=== PATIENT | female | born 1960 | race African-American/Black ===

== ENCOUNTER 2017-01-12 18:06 | Emergency (ER) | payer SELFPAY ==
[~2017-01-12] VITALS: Ht 160 cm; Wt 114.0 kg
[2017-01-12] MEDS ORDERED: KETOROLAC 30MG/ML VIAL IM ONE (19:45)
[2017-01-12 19:55] VITALS: BP 137/89
== END 2017-01-12 21:30 | disposition home or self-care (01) ==
LOC: ER 21:13
DX: M25.561 Pain in right knee (principal); I10 Essential (primary) hypertension; Z88.6 Allergy status to analgesic agent
CPT/HCPCS: 96372; 99283; J1885; Z7610

== ENCOUNTER 2018-06-21 21:35 | Emergency (ER) | payer MEDICAID ==
[~2018-06-21] VITALS: Ht 160 cm; Wt 86.0 kg
[2018-06-22 00:02] LABS: CLARITY URINE CLOUDY (CLEAR); COLOR URINE YELLOW (YELLOW); KETONES URINE TRACE (NEGATIVE); LEUKOCYTE ESTERASE URINE NEGATIVE (NEGATIVE); NITRITE URINE NEGATIVE (NEGATIVE); OCCULT BLOOD URINE NEGATIVE (NEGATIVE); PROTEIN URINE NEGATIVE (NEGATIVE); SPECIFIC GRAVITY URINE 1.038 (1.005-1.030); UROBILINOGEN URINE 0.2 E.U./dL (0.2-1.0)
[2018-06-22] MEDS ORDERED: FAMOTIDINE 20MG/2ML VIAL IV STA (00:16)
[2018-06-22] MEDS ORDERED: SODIUM CHLORIDE 0.9% 1,000 ML IV ONE (00:16)
[2018-06-22] MEDS ORDERED: ONDANSETRON HCL 4MG/2ML INJ IV STA (00:16)
[2018-06-22 00:42] LABS: BASOPHILS % 0.5 % (0.0-2.0); HEMATOCRIT. 31.9 % (36.0-48.0); HEMOGLOBIN. 10.4 g/dL (12.0-16.0); LYMPHOCYTES % 23.5 % (20.0-50.0); MEAN CORPUSCULAR HEMOGLOBIN 26.8 pg (28.0-32.0); MONOCYTES % 8.6 % (2.0-8.0); NEUTROPHILS % 65.4 % (40.0-76.0); PLATELET 372 x1000/uL (130-400); RED BLOOD CELL COUNT 3.89 mill/uL (4.2-5.4); RED CELL DISTRIBUTION WIDTH 14.9 % (11.6-14.6)
[2018-06-22 00:48] LABS: CHLORIDE 103 mEq/L (98-107)
[2018-06-22 00:51] LABS: PROTHROMBIN TIME 10.4 sec (9.6-11.0)
[2018-06-22] MEDS ORDERED: TRAMADOL 50MG TABLET PO ONE (02:30)
[2018-06-22] MEDS ORDERED: IOHEXOL-300 100 ML BOTTLE ONE (03:26)
[2018-06-22] MEDS ORDERED: METRONIDAZOLE 500MG TABLET PO NR (03:45)
[2018-06-22] MEDS ORDERED: LEVOFLOXACIN 500MG PREMIX 100 ML IV NR (03:45)
[2018-06-22] MEDS ORDERED: LEVOFLOXACIN 500MG TABLET PO ONE (04:00)
[2018-06-22 04:08] VITALS: BP 121/69
== END 2018-06-22 04:10 | disposition home or self-care (01) ==
LOC: ER 21:35
DX: K57.92 Diverticulitis of intestine, part unspecified, without perforation or abscess without bleeding (principal); I10 Essential (primary) hypertension; Z88.5 Allergy status to narcotic agent; Z88.6 Allergy status to analgesic agent
CPT/HCPCS: 36415; 74177; 80053; 81003; 83690; 85025; 85610; 96374; 96375; 99284; J2405; J3490; J7030; Q9967; Z7610

== ENCOUNTER 2018-06-30 15:30 | Inpatient (IN) | payer MEDICAID ==
[~2018-06-30] VITALS: Ht 160 cm; Wt 79.4 kg
[2018-06-30] MEDS ORDERED: ONDANSETRON HCL 4MG/2ML INJ IV STA (18:59)
[2018-06-30] MEDS ORDERED: KETOROLAC 30MG/ML VIAL IV STA (18:59)
[2018-06-30] MEDS ORDERED: SODIUM CHLORIDE 0.9% 1,000 ML IV ONE (18:59)
[2018-06-30] MEDS ORDERED: CEFTRIAXONE 1 G PREMIX 50 ML IV ONE (19:00)
[2018-06-30] MEDS ORDERED: METRONIDAZOLE 500 MG PREMIX 100 ML IV ONE (19:00)
[2018-06-30 19:36] LABS: BASOPHILS % 0.6 % (0.0-2.0); HEMATOCRIT. 34.2 % (36.0-48.0); LYMPHOCYTES % 19.2 % (20.0-50.0); MEAN CORPUSCULAR HEMOGLOBIN 26.7 pg (28.0-32.0); MEAN CORPUSCULAR VOLUME 82.8 fL (81.0-99.0); MEAN PLATELET VOLUME 7.1 fl (7.4-10.4); MONOCYTES % 7.7 % (2.0-8.0); NEUTROPHILS % 71.5 % (40.0-76.0); PLATELET 445 x1000/uL (130-400); RED BLOOD CELL COUNT 4.13 mill/uL (4.2-5.4); RED CELL DISTRIBUTION WIDTH 15.6 % (11.6-14.6)
[2018-06-30 19:40] LABS: CHLORIDE 103 mEq/L (98-107)
[2018-06-30 21:15] LABS: CLARITY URINE CLOUDY (CLEAR); COLOR URINE YELLOW (YELLOW); KETONES URINE 1+ (NEGATIVE); LEUKOCYTE ESTERASE URINE 1+ (NEGATIVE); NITRITE URINE NEGATIVE (NEGATIVE); OCCULT BLOOD URINE NEGATIVE (NEGATIVE); PROTEIN URINE TRACE (NEGATIVE); SPECIFIC GRAVITY URINE 1.028 (1.005-1.030); UROBILINOGEN URINE 0.2 E.U./dL (0.2-1.0)
[2018-06-30] MEDS ORDERED: IOHEXOL-300 100 ML BOTTLE ONE (21:46)
[2018-07-01] VITALS (7 sets, daily range): BP systolic 112–138; BP diastolic 63–82
[2018-07-01] MEDS ORDERED: ATOR40TA70 MT (02:28)
[2018-07-01] MEDS ORDERED: LISI-604 MT (02:28)
[2018-07-01] MEDS ORDERED: HYDR25TA MT (02:28)
[2018-07-01] MEDS ORDERED: FERR220S12 MT (02:28)
[2018-07-01] MEDS ORDERED: CIPR-168 MT (02:28)
[2018-07-01] MEDS ORDERED: METR-218 MT (02:28)
[2018-07-01] MEDS ORDERED: MORPHINE SULFATE 2 MG/ML CPJ (NOT FOR IM USE) IV PRN (04:30)
[2018-07-01] MEDS ORDERED: ONDANSETRON HCL 4MG/2ML INJ IV PRN (04:30)
[2018-07-01] MEDS ORDERED: METRONIDAZOLE 500 MG PREMIX 100 ML IV SCH ×2 (04:45→08:00)
[2018-07-01] MEDS ORDERED: KETOROLAC 15MG/ML VIAL IV PRN (07:30)
[2018-07-01] MEDS: DEXT 5%/0.45% NACL KCL 20MEQ/L 1,000 ML IV SCH ×2 (08:47→16:49)
[2018-07-01] MEDS: LEVOFLOXACIN 500MG PREMIX 100 ML IV SCH (08:47)
[2018-07-01] MEDS: METRONIDAZOLE 500 MG PREMIX 100 ML IV SCH ×3 (08:47→23:02)
[2018-07-01] MEDS ORDERED: LEVOFLOXACIN 500MG PREMIX 100 ML IV SCH (09:00)
[2018-07-02] VITALS: BP 133/69
[2018-07-02] MEDS: DEXT 5%/0.45% NACL KCL 20MEQ/L 1,000 ML IV SCH ×2 (02:46→09:00)
[2018-07-02 04:00] VITALS: BP 127/77
[2018-07-02 07:21] LABS: BASOPHILS % 0.5 % (0.0-2.0); HEMATOCRIT. 28.2 % (36.0-48.0); HEMOGLOBIN. 9.2 g/dL (12.0-16.0); LYMPHOCYTES % 20.6 % (20.0-50.0); MEAN CORPUSCULAR HEMOGLOBIN 26.8 pg (28.0-32.0); MEAN CORPUSCULAR VOLUME 82.7 fL (81.0-99.0); MEAN PLATELET VOLUME 6.8 fl (7.4-10.4); NEUTROPHILS % 68.9 % (40.0-76.0); PLATELET 325 x1000/uL (130-400); RED BLOOD CELL COUNT 3.42 mill/uL (4.2-5.4); RED CELL DISTRIBUTION WIDTH 15.4 % (11.6-14.6)
[2018-07-02 07:52] LABS: CHLORIDE 108 mEq/L (98-107)
[2018-07-02 08:00] VITALS: BP 126/72
[2018-07-02] MEDS: METRONIDAZOLE 500 MG PREMIX 100 ML IV SCH ×2 (08:58→15:28)
[2018-07-02] MEDS: LEVOFLOXACIN 500MG PREMIX 100 ML IV SCH (10:28)
[2018-07-02 11:49] VITALS: BP 119/73
[2018-07-02 15:26] VITALS: BP 125/75
[2018-07-02 15:57] VITALS: BP 119/73
== END 2018-07-02 17:22 | disposition home or self-care (01) | DRG 244 ==
LOC: ER 15:30 → 6EST 22:03 → EDBEDREQ 22:06 → EDBEDREQSVC 22:06 → EDBEDREQTM 22:06 → ENRESERV 23:27
PROVIDERS: ADMIT Internal Medicine; ATTEND Internal Medicine
DX: K57.32 Diverticulitis of large intestine without perforation or abscess without bleeding (principal); J18.9 Pneumonia, unspecified organism; D18.03 Hemangioma of intra-abdominal structures; D64.9 Anemia, unspecified; E78.00 Pure hypercholesterolemia, unspecified; N39.0 Urinary tract infection, site not specified; E78.5 Hyperlipidemia, unspecified; I10 Essential (primary) hypertension; J45.909 Unspecified asthma, uncomplicated; Z90.710 Acquired absence of both cervix and uterus; Z79.899 Other long term (current) drug therapy
CPT/HCPCS: 36415; 71045; 74177; 80048; 82378; 93970; 96365; 96375; 99285; J0696; J1885; J1956; J2405; J3490; J7030; Q9967